=== PATIENT | female | born 1950 | race Caucasian/White ===

== ENCOUNTER 2016-11-02 06:01 | Inpatient (IN) | payer OTHER ==
[2016-10-25 14:47] LABS: % IMMATURE GRANULYOCYTES 0.3 % (0.0-1.1); ABSOLUTE IMMATURE GRANULOCYTES 0.02 10^3/uL (0.00-0.10); ADD DIFF? NO; ADD MORPH? NO; ADD SCAN? NO; ATYPICAL LYMPHOCYTE FLAG 10 (0-99); FRAGMENT RBC FLAG 0 (0-99); HEMATOCRIT 43.6 % (38.0-47.0); HEMOGLOBIN 14.2 g/dL (12.6-16.3); LEFT SHIFT FLG 0 (0-99); LIPEMIA HEMOLYSIS FLAG 80 (0-99); MEAN CELL HEMOGLOBIN 31.2 pg (27.9-34.1); MEAN CELL HEMOGLOBIN CONCENTR. 32.6 g/dL (32.4-36.7); MEAN CELL VOLUME 95.8 fL (81.5-99.8); PLATELET CLUMPS FLAG 0 (0-99); PLATELET COUNT 248 10^3/uL (150-400); RED BLOOD CELL COUNT 4.55 10^6/uL (4.18-5.33); RED CELL DISTRIBUTION WIDTH 12.2 % (11.5-15.2)
[~2016-11-02 06:01] MED LIST: ACETAMINOPHEN 325 MG TAB PO ONE; CEFAZOLIN 2 GM/DEXTR 100 ML IV ONE; CHLORHEXIDINE GLUC HIBICLENS 118 ML BTL TP ONE; DEXAMETHASONE 4 MG/ML VIAL IVP ONE; FAMOTIDINE 20 MG TAB PO ONE; ROPI/epiNEPH/KETOROLAC JOINT COCKTAIL IU ONE; TRANEXAMIC ACID 3,000 MG in NS 50 ML IRR ONE
[2016-11-02] MEDS ORDERED: TRANEXAMIC ACID 3,000 MG/50 ML BAG IRR ONE (07:17)
[2016-11-02] MEDS ORDERED: MIDAZOLAM 2 MG/2 ML VIAL ONE (07:46)
[2016-11-02] MEDS ORDERED: fentaNYL 100 MCG/2 ML INJ ONE (08:01)
[2016-11-02] MEDS ORDERED: PROPOFOL 200 MG/20 ML VIAL ONE ×2 (08:01→08:50)
[2016-11-02] MEDS ORDERED: SKIN ADHESIVE (DERMABOND) 1 EACH TP ONE (08:30)
[2016-11-02] MEDS ORDERED: ONDANSETRON 4 MG/2 ML VIAL IVP PRN (08:37)
[2016-11-02] MEDS ORDERED: PHARMACY PAIN CONSULT 1 EA MISC PRN (08:37)
[2016-11-02] MEDS ORDERED: MAGNESIUM HYDROXIDE 30 ML UDCUP PO PRN (08:37)
[2016-11-02] MEDS ORDERED: DIPHENOXYLATE/ATROPINE LOMOTIL 1 TAB PO PRN (08:37)
[2016-11-02] MEDS ORDERED: POLYETHYLENE GLYCOL 3350 17 GM PKT PO PRN (08:37)
[2016-11-02] MEDS ORDERED: LACTULOSE 20 GM/30 ML UDCUP PO PRN (08:37)
[2016-11-02] MEDS ORDERED: ONDANSETRON DISINTEGRATING 4 MG TAB PO PRN (08:37)
[2016-11-02] MEDS ORDERED: BISACODYL 10 MG SUPP PR PRN (08:37)
[2016-11-02] MEDS ORDERED: TEMAZEPAM 15 MG CAP PO PRN (08:37)
[2016-11-02] MEDS ORDERED: diphenhydrAMINE 25 MG CAP PO PRN (08:37)
[2016-11-02] MEDS ORDERED: METOCLOPRAMIDE 10 MG/2 ML VIAL IVP PRN (08:37)
[2016-11-02] MEDS ORDERED: PROMETHAZINE HCL 25 MG SUPPR PR PRN (08:37)
[2016-11-02] MEDS ORDERED: ZOLPIDEM TARTRATE 5 MG TAB PO PRN (08:38)
[2016-11-02] MEDS ORDERED: traMADol 50 MG TAB PO PRN (08:38)
[2016-11-02] MEDS ORDERED: ONDANSETRON 4 MG/2 ML VIAL ONE (08:53)
[2016-11-02] MEDS ORDERED: LR 1,000 ML IV SCH (09:00)
--- NOTE | 2016-11-02 09:20 | POSTOPPROG ---
Post Op Note Date of Operation: 11/02/16 Surgeon: Jose Mcnair Associate Professor Computer Science: ana mcnair Anesthesiologist: dr. david Anesthesia: Spinal Pre-op Diagnosis: right hip OA Post-op Diagnosis: same Indication: right hip pain due to OA that failed conservative measures Procedure: R SHAWN ant approach Findings: severe hip OA Inf/Abcess present in the surg proc area at time of surgery?: No EBL: 100-500
[2016-11-02 10:28] VITALS: RESP 16
[2016-11-02] MEDS: SENNOSIDES/DOCUSATE SODIUM TAB PO SCH ×2 (11:05→19:41)
[2016-11-02] MEDS: oxyCODONE IR 5 MG TAB PO PRN ×4 (11:32→21:02)
[2016-11-02] MEDS: ACETAMINOPHEN 325 MG TAB PO SCH ×3 (11:33→22:52)
[2016-11-02] MEDS: ceFAZolin 2 GM/DEXTROSE 100 ML IV SCH ×2 (13:56→21:03)
--- NOTE | 2016-11-02 16:48 | GOP ---
[f rep st] OPERATIVE REPORT DATE OF OPERATION: 11/02/2016 SURGEON: Dominique Landaverde MD [employer] OPERATOR: HENRI Escoto PREOPERATIVE DIAGNOSIS: Right hip osteoarthritis. POSTOPERATIVE DIAGNOSIS: Right hip osteoarthritis. PROCEDURE PERFORMED: Total hip arthroplasty with x-ray. FINDINGS: ESTIMATED BLOOD LOSS: 200 cc. INDICATIONS: The patient has progressively worsening arthritis of the hip which has failed medical management. The patient understands the treatment options including continued non-operative care an d has selected surgical intervention. The patient has decided to undergo total hip arthroplasty via the direct anterior approach, understanding the risks of the procedure including, but not limited t o, neurovascular injury, infection, persistent pain, component wear and loosening, deep venous throm bosis, pulmonary embolism, limb length inequality, hip instability (including dislocation), and intr a-operative fractures. DESCRIPTION OF PROCEDURE: After proper identification of the patient including verification and mar john the surgical site, the patient was brought to the operating room and placed in the supine posit ion. All bony prominences were well padded. Anesthesia was induced without complication and intrav enous prophylactic antibiotics were administered prior to skin incision. The operative leg was placed in the Trumpf Arch table extension and the well leg in a [place] leg h older. The patient was prepped and draped in the usual sterile fashion. The C-arm was draped for i ntra-operative fluoroscopy to check acetabular position, femoral component position including leg le ngth and femoral offset. Attention was then drawn to surgical exposure of the hip. An incision was made with a #10 [place] er blade starting 3 cm lateral and 3 cm distal to the anterior superior iliac spine measuring 8-10 c m and coursing distally toward the greater trochanter. The skin and subcutaneous tissues were divid ed sharply down to the fascia flores. The fascia flores was incised in line with the skin incision expo sing the underlying tensor fascia flores muscle. The muscle was bluntly elevated from the fascia and the first extracapsular Cobra retractor was placed laterally at the junction of the superior femoral neck and greater trochanter. The lateral femoral circumflex vessels were identified, cauterized, a nd divided with the Aquamantys bipolar cautery. The deep investing fascia of the TFL was divided to allow proper mobilization of the muscle preventing damage during the retraction. The reflected hea d of the rectus femoris muscle was elevated off the anterior hip capsule and a medial Cobra retracto r was placed just proximal to the lesser trochanter. The anterior capsulotomy was made sharply from the superolateral acetabulum to the saddle junction o f the superior femoral neck and greater trochanter, then coursing inferomedial towards the lesser tr ochanter. The retractors were then placed in the intracapsular position for femoral neck osteotomy. Corresponding to pre-operative templating, the osteotomy was made with the oscillating saw careful ly protecting the greater trochanter and soft tissues. The femoral head was removed from the acetab ulum with a corkscrew and confirmed to be severely arthritic with exposed bone, deformity and osteop hytes. Similar findings were confirmed in the acetabulum. The Arch table extension was then placed in 40 degrees external rotation. Attention was then drawn to the acetabular preparation. After placement of the anterior and posteri or Cobra retractors outside the labrum and intracapsular, the circumferential labrum was removed sha rply. The foveal contents were then removed and hemostasis obtained with cautery. The first reamer selected was sized using the removed femoral head. Reaming began with medializatio n and then commenced in 2 mm increments at 45 degrees of abduction and 15 degrees of anteversion usi ng fluoroscopic navigation. Reaming ceased 1 mm less than the definitive acetabular component and c orresponded to the pre-operative templating. The final acetabular component was inserted using fluo roscopy to achieve proper orientation yielding excellent purchase and stability in the acetabulum. The final acetabular liner was then placed and its seating confirmed. Attention was then turned to the femur. The Arch table extension was placed in extension and adduct ion, delivering the osteotomized femoral neck into the wound. A 2-pronged femoral elevator was plac ed at the calcar and another at the tip of the greater trochanter. The posterolateral capsule was r eleased with cautery allowing mobilization of the femur lateral and anterior for preparation. The e xternal rotators were visualized and preserved. A curette and rongeur were used to open the startin g point for broaching. Serial broaching started with the #0 broach and ended with the broach that e xhibited excellent fit in the proximal femur. A change in pitch during mallet strikes was accompani ed by the inability to advance the broach any further. The trial reduction was performed and fluoro scopic navigation was utilized to check limb length. Adjustments were made to equalize limb length accordingly. After the final trials were accepted they were removed and the wound was copiously lavaged. The fem oral component was seated to the same depth as the final broach and the femoral head was impacted on to the clean trunnion. The hip was then reduced for the final time and once more fluoroscopy was us ed to check that limb length equality was achieved. The wound was irrigated and closed in layers, the fascia flores with 2-0 Quill, the subcutaneous tissu e with 2-0 Quill, and the skin with Dermabond. Sterile dressings were applied. Final sharps and sp onge counts were accurate. The patient was then transferred to a hospital bed and brought to the re covery room in stable condition. IMPLANTS: Accolade II size 4 at 127, acetabular component a 52 mm Tritanium. The liner was a Tride nt X3 32 mm. The head was a Biolox Delta Delta 32 mm -4. /[id number]/MODL
[2016-11-02] MEDS: FAMOTIDINE 20 MG TAB PO SCH (19:41)
[2016-11-02] MEDS: ASPIRIN 325 MG TAB PO SCH (19:41)
[2016-11-02] MEDS: CYCLOBENZAPRINE 10 MG TAB PO PRN (22:53)
[2016-11-03] MEDS: oxyCODONE IR 5 MG TAB PO PRN ×2 (03:11→10:06)
[2016-11-03 04:48] LABS: HEMATOCRIT 34.6 % (38.0-47.0); HEMOGLOBIN 11.5 g/dL (12.6-16.3)
[2016-11-03] MEDS: ACETAMINOPHEN 325 MG TAB PO SCH ×2 (04:58→11:35)
[2016-11-03 07:30] VITALS: BP 123/65; PULSE 77; TEMP 99.1
[2016-11-03] MEDS: ASPIRIN 325 MG TAB PO SCH (09:36)
[2016-11-03] MEDS: SENNOSIDES/DOCUSATE SODIUM TAB PO SCH (09:36)
[2016-11-03] MEDS: FAMOTIDINE 20 MG TAB PO SCH (09:36)
[2016-11-03] MEDS: CYCLOBENZAPRINE 10 MG TAB PO PRN (09:48)
--- NOTE | 2016-11-03 09:52 | SOAPPROG ---
SOAP Progress Note Assessment/Plan: Assessment: is doing well POD 1 s/p R SHAWN 1. Pain management: pain is well controlled on oral pain meds 2. Anemia: level is expected initially postop. Asymptomatic, continue to monitor 3. VTE prophylaxis: Recommend aspirin daily. Cont SCDs and TEDs 4. D/c planning: d/c to home today most likely pending release from PT. Plan: 11/03/16 09:51 Objective: Vital Signs Temp Pulse Resp BP Pulse Ox 37.3 C 77 16 123/65 H 96 11/03/16 07:29 11/03/16 07:29 11/03/16 07:29 11/03/16 07:29 11/03/16 07:29 Laboratory Results 11/03/16 04:19 11/02/16 11/03/16 11/04/16 05:59 05:59 05:59 Intake Total 3270 Output Total 1900 150 Balance 1370 -150 ICD10 Worksheet Patient Problems: Problems Problem Status Onset Primary localized osteoarthritis of right hip Acute
[2016-11-03 13:10] VITALS: O2SAT 95
== END 2016-11-03 14:23 | disposition home or self-care (01) | DRG 470 ==
LOC: F3N 06:01
PROVIDERS: ADMIT Orthopaedic Surgery; ATTEND Orthopaedic Surgery
PROC: 0SR904Z Replacement of Right Hip Joint with Ceramic on Polyethylene Synthetic Substitute, Open Approach (ICD-10-PCS; principal; 2016-11-02 08:15)
DX: M16.11 Unilateral primary osteoarthritis, right hip (principal); Z85.3 Personal history of malignant neoplasm of breast
CPT/HCPCS: 97116-GP; 97161-GP; 97165-GO; G8978-GP-CJ; G8979-GP-CI; G8980-GP-CI; G8987-GO-CI; G8988-GO-CI; G8989-GO-CI; J0171; J0690; J1100; J1885; J2250; J2405; J2704; J2795; J3010

== ENCOUNTER → 2017-07-12 | Outpatient (CLI) | payer OTHER | LOC: FIMAGING 08:34 | PROVIDERS: ATTEND Internal Medicine | DX: Z12.31 Encounter for screening mammogram for malignant neoplasm of breast (principal); Z85.3 Personal history of malignant neoplasm of breast | CPT/HCPCS: G0202 ==

== ENCOUNTER → 2017-08-09 | Outpatient (CLI) | payer OTHER | LOC: BMCIMAGING 08:16 | PROVIDERS: ATTEND Orthopaedic Surgery | DX: M16.12 Unilateral primary osteoarthritis, left hip (principal); Z96.641 Presence of right artificial hip joint ==

== ENCOUNTER → 2017-08-18 | Outpatient (CLI) | payer OTHER | LOC: FIMAGING 15:39 | PROVIDERS: ATTEND Orthopaedic Surgery | DX: M16.12 Unilateral primary osteoarthritis, left hip (principal); M53.3 Sacrococcygeal disorders, not elsewhere classified; M51.37 Other intervertebral disc degeneration, lumbosacral region; Z96.641 Presence of right artificial hip joint ==

== ENCOUNTER 2017-10-09 09:02 | Inpatient (IN) | payer OTHER ==
--- NOTE | 2017-10-09 07:06 | PDHPUP ---
History & Physical Update H&P update statement: This history and physical update is based on an assessment of the patient which was completed after admission or registration (within 24 hours), but prior to the surgery/procedure. H&P update: no change in patient's condition since H&P completed
--- NOTE | 2017-10-09 07:07 | PDIAF ---
- Diagnosis Diagnosis: left hip djd Code Status: Full Code - Medication Management Discharge Medications: Medications to Continue on Transfer Acetaminophen [Tylenol ES 500 mg (*)] 500 mg PO TID PRN 10/24/16 [Last Taken 11/14] Raloxifene HCl [Evista] 60 mg PO DAILY 10/24/16 [Last Taken 10/26/16] Zolpidem Tartrate [Ambien 5MG (*)] 2.5 mg PO HS PRN 10/24/16 [Last Taken ] traMADol [Ultram 50 mg (*)] 50 mg PO HS PRN 10/24/16 [Last Taken 10/30/16 21:00] Herbals/Supplements -Info Only 1 ea PO DAILY 09/19/17 [Last Taken Unknown] Ibuprofen [Motrin (*)] 400 mg PO TID PRN 09/19/17 [Last Taken Unknown] Multivitamins [Multivitamin (*)] 1 each PO DAILY 09/19/17 [Last Taken Unknown] Discharge Medications: Refer to the Discharge Home Medication list for PRN reason. - Orders Services needed: Physical Therapy Activity/Weight Bearing Restrictions: wbat. anterior hip precautions. daily dressing changes. ice prn. no soaking, may shower without bandage. f/u at two weeks - Follow Up Care Current Providers and Referrals: Dahiana Yan MD [Primary Care Provider] -
[~2017-10-09 09:02] MED LIST changes: -ACETAMINOPHEN 325 MG TAB PO ONE; +BUPI/epINEPH/KETOROLAC/morphINE IU ONE; -CEFAZOLIN 2 GM/DEXTR 100 ML IV ONE; -CHLORHEXIDINE GLUC HIBICLENS 118 ML BTL TP ONE; -DEXAMETHASONE 4 MG/ML VIAL IVP ONE; -FAMOTIDINE 20 MG TAB PO ONE; +NS IV ONE; -ROPI/epiNEPH/KETOROLAC JOINT COCKTAIL IU ONE; +ROPIVACAINE 0.2% 80 MG, EPINEPHrine 0.2 MG, KETOROLAC TROMETHAMINE 30 MG, morphINE 10 M... IU ONE; -TRANEXAMIC ACID 3,000 MG in NS 50 ML IRR ONE; +TRANEXAMIC ACID IV ONE
[2017-10-09] MEDS ORDERED: ceFAZolin 1 GM/5 ML SYR ONE (09:07)
[2017-10-09] MEDS ORDERED: HYDROCODONE/APAP 5/325 TAB PO PRN ×2 (09:13→11:51)
[2017-10-09] MEDS ORDERED: NS 500 ML IV PRN (09:13)
[2017-10-09] MEDS ORDERED: ONDANSETRON 4 MG/2 ML VIAL IVP PRN ×2 (09:13→11:51)
[2017-10-09] MEDS ORDERED: fentaNYL 100 MCG/2 ML INJ IVP PRN ×2 (09:13→11:51)
[2017-10-09] MEDS ORDERED: LABETALOL HCL 5 MG/ML 20 ML MDV IVP PRN (09:13)
[2017-10-09] MEDS ORDERED: NALOXONE HCL 0.4 MG/ML INJ IVP PRN ×2 (09:13→11:51)
[2017-10-09] MEDS ORDERED: MIDAZOLAM 2 MG/2 ML VIAL IVP ONE (09:47)
--- NOTE | 2017-10-09 09:50 | PDANEPAE ---
ANE Past Medical History - Cardiovascular History Hx Hypertension: No Hx Arrhythmias: No Hx Chest Pain: No Hx Coronary Artery / Peripheral Vascular Disease: No Hx CHF / Valvular Disease: No Hx Palpitations: No - Pulmonary History Hx COPD: No Hx Asthma/Reactive Airway Disease: No Hx Recent Upper Respiratory Infection: No Hx Oxygen in Use at Home: No Hx Sleep Apnea: No Sleep Apnea Screening Result - Last Documented: Negative - Neurologic History Hx Cerebrovascular Accident: No Hx Seizures: No Hx Dementia: No - Endocrine History Hx Diabetes: No Hypothyroid: No Hyperthyroid: No Obesity: no - Renal History Hx Renal Disorders: No - Liver History Hx Hepatic Disorders: No - Neurological & Psychiatric Hx Hx Neurological and Psychiatric Disorders: No - Cancer History Hx Cancer: Yes Cancer History Comment: L BREAST. SKIN - Congenital Disorder History Hx Congenital Disorders: No - GI History Hx Gastrointestinal Disorders: No - Other Health History Other Health History: OSTEOARTHRITIS - Chronic Pain History Chronic Pain: Yes (LT HIP) - Surgical History Prior Surgeries: RT TOTAL HIP 11/02/16. LUMPECTOMY L 2013. RT HAND. LAPAROSCOPY ADHESIONS ANE Review of Systems Review of Systems: - Exercise capacity METS (RN): 6 METS ANE Patient History - Allergies Allergies/Adverse Reactions: No Known Allergies Allergy (Unverified 07/16/13 08:45) - Home Medications Home Medications: Acetaminophen [Tylenol ES 500 mg (*)] 500 mg PO TID PRN 10/24/16 [Last Taken 11/14] Raloxifene HCl [Evista] 60 mg PO DAILY 10/24/16 [Last Taken 10/26/16] Zolpidem Tartrate [Ambien 5MG (*)] 2.5 mg PO HS PRN 10/24/16 [Last Taken ] traMADol [Ultram 50 mg (*)] 50 mg PO HS PRN 10/24/16 [Last Taken 10/30/16 21:00] Herbals/Supplements -Info Only 1 ea PO DAILY 09/19/17 [Last Taken Unknown] Ibuprofen [Motrin (*)] 400 mg PO TID PRN 09/19/17 [Last Taken Unknown] Multivitamins [Multivitamin (*)] 1 each PO DAILY 09/19/17 [Last Taken Unknown] - Smoking Hx Smoking Status: Never smoked - Family Anes Hx Family Hx Anesthesia Complications: NEG ANE Labs/Vital Signs - Vital Signs Height: 161.29 cm Weight: 63.503 kg ANE Physical Exam - Airway Neck exam: FROM Mallampati Score: Class 1 Mouth exam: normal dental/mouth exam - Pulmonary Pulmonary: no respiratory distress - Cardiovascular Cardiovascular: regular rate and rhythym - ASA Status ASA Status: II ANE Anesthesia Plan Anesthesia Plan: GA w LMA, spinal
[2017-10-09] MEDS ORDERED: PROPOFOL/EMULSION 500 MG/50 ML BOTTLE IV ONE (10:06)
[2017-10-09] MEDS ORDERED: LIDOCAINE 2% 5 ML SDV ONE (10:06)
[2017-10-09] MEDS ORDERED: fentaNYL 100 MCG/2 ML INJ ONE (10:08)
[2017-10-09] MEDS ORDERED: MIDAZOLAM 2 MG/2 ML VIAL ONE (10:36)
[2017-10-09] MEDS ORDERED: DIPHENOXYLATE/ATROPINE LOMOTIL 1 TAB PO PRN (11:30)
[2017-10-09] MEDS ORDERED: TEMAZEPAM 15 MG CAP PO PRN (11:30)
[2017-10-09] MEDS ORDERED: METOCLOPRAMIDE 10 MG/2 ML VIAL IVP PRN (11:30)
[2017-10-09] MEDS ORDERED: LR 1,000 ML IV SCH (11:30)
[2017-10-09] MEDS ORDERED: BISACODYL 10 MG SUPP PR PRN (11:30)
[2017-10-09] MEDS ORDERED: diphenhydrAMINE 25 MG CAP PO PRN (11:30)
[2017-10-09] MEDS ORDERED: PROMETHAZINE HCL 25 MG SUPPR PR PRN (11:30)
[2017-10-09] MEDS ORDERED: PROMETHAZINE HCL 25 MG/ML INJ IVP PRN (11:30)
[2017-10-09] MEDS ORDERED: LACTULOSE 20 GM/30 ML UDCUP PO PRN (11:30)
[2017-10-09] MEDS ORDERED: MAGNESIUM HYDROXIDE 30 ML UDCUP PO PRN (11:30)
[2017-10-09] MEDS ORDERED: LR 500 ML IV PRN (11:51)
--- NOTE | 2017-10-09 11:53 | POSTANESTH ---
Post Anesthetic Evaluation Cardiovascular Status: Normal, Stable Respiratory Status: Normal, Stable Level of Consciousness/Mental Status: Can Participate in Eval Pain Control: Adequate, Prn Tx Ordered Nausea/Vomiting Control: Adequate, Prn Tx Ordered Complications Possibly Related to Anesthesia: None Noted
[2017-10-09] MEDS ORDERED: ceFAZolin 2 GM/SWFI 2 GM/20 ML SYR IVP ONE (11:55)
[2017-10-09] MEDS ORDERED: ACETAMINOPHEN 325 MG TAB PO ONE (11:55)
[2017-10-09] MEDS ORDERED: FAMOTIDINE 20 MG TAB PO ONE (11:55)
[2017-10-09] MEDS: ACETAMINOPHEN 325 MG TAB PO SCH ×2 (13:47→18:02)
[2017-10-09] MEDS ORDERED: ceFAZolin 2 GM/DEXTROSE 100 ML IV SCH (14:00)
[2017-10-09] MEDS: ONDANSETRON DISINTEGRATING 4 MG TAB PO PRN (15:44)
[2017-10-09] MEDS: oxyCODONE IR 5 MG TAB PO PRN ×3 (15:46→23:25)
[2017-10-09] MEDS: TRANEXAMIC ACID 650 MG TAB PO SCH (18:01)
[2017-10-09] MEDS: ONDANSETRON 4 MG/2 ML VIAL IVP PRN (18:01)
[2017-10-09] MEDS: ceFAZolin 2 GM/SWFI 2 GM/20 ML SYR IVP SCH (18:01)
[2017-10-09] MEDS: DIAZEPAM 5 MG TAB PO PRN (18:02)
--- NOTE | 2017-10-09 19:48 | PDMN ---
Medical Necessity Medical necessity: IP surgery per [facility] cpt [id number]
[2017-10-09] MEDS: FAMOTIDINE 20 MG TAB PO SCH (20:57)
[2017-10-09] MEDS: ASPIRIN 325 MG TAB PO SCH (20:57)
[2017-10-09] MEDS: SENNOSIDES/DOCUSATE SODIUM TAB PO SCH (20:57)
[2017-10-09] MEDS: POLYETHYLENE GLYCOL 3350 17 GM PKT PO PRN (23:25)
[2017-10-10] MEDS: ONDANSETRON DISINTEGRATING 4 MG TAB PO PRN (01:31)
[2017-10-10] MEDS: ceFAZolin 2 GM/SWFI 2 GM/20 ML SYR IVP SCH (01:32)
[2017-10-10] MEDS: ONDANSETRON 4 MG/2 ML VIAL IVP PRN (01:56)
[2017-10-10] MEDS: ACETAMINOPHEN 325 MG TAB PO SCH ×3 (04:05→11:03)
[2017-10-10] MEDS: TRANEXAMIC ACID 650 MG TAB PO SCH ×2 (04:14→11:04)
[2017-10-10 07:19] VITALS: RESP 16
[2017-10-10] MEDS: DIAZEPAM 5 MG TAB PO PRN (07:52)
[2017-10-10] MEDS: oxyCODONE IR 5 MG TAB PO PRN ×2 (07:52→13:19)
--- NOTE | 2017-10-10 07:52 | SOAPPROG ---
SOAP Progress Note Assessment/Plan: Assessment: s/p left leilani Plan:d/c home when stable dvt precautions f/u at two weeks [facility] seek attn for increasing pain, other focal complaint 10/10/17 07:50 Subjective: nauseated pain no cp or sob Objective: Vital Signs Temp Pulse Resp BP Pulse Ox 37.4 C 85 16 130/65 H 93 10/10/17 07:19 10/10/17 07:19 10/10/17 07:19 10/10/17 07:19 10/10/17 07:19 Laboratory Results 10/10/17 04:35 10/09/17 10/10/17 10/11/17 05:59 05:59 05:59 Intake Total 2350 Output Total 2100 500 Balance 250 -500 dressing clean, dry and intact intact pf,df, ehl toes warm and pink neg [place] xrays stable anatomic alignement no fx ICD10 Worksheet Patient Problems: Problems Problem Status Onset Primary localized osteoarthritis of right hip Acute
--- NOTE | 2017-10-10 07:52 | PDIAF ---
- Diagnosis Diagnosis: left hip djd Code Status: Full Code - Medication Management Discharge Medications: Medications to Continue on Transfer Acetaminophen [Tylenol ES 500 mg (*)] 500 mg PO TID PRN 10/24/16 [Last Taken 11/14] Raloxifene HCl [Evista] 60 mg PO DAILY 10/24/16 [Last Taken 10/26/16] Zolpidem Tartrate [Ambien 5MG (*)] 2.5 mg PO HS PRN 10/24/16 [Last Taken ] traMADol [Ultram 50 mg (*)] 50 mg PO HS PRN 10/24/16 [Last Taken 10/30/16 21:00] Herbals/Supplements -Info Only 1 ea PO DAILY 09/19/17 [Last Taken Unknown] Multivitamins [Multivitamin (*)] 1 each PO DAILY 09/19/17 [Last Taken Unknown] Aspirin [Aspirin 325 mg (*)] 325 mg PO DAILY tab 10/10/17 [Last Taken Unknown] Diazepam [Valium 5 MG (*)] 5 mg PO Q6HRS PRN #30 tab 10/10/17 [Last Taken Unknown] Ondansetron Odt [Zofran Odt 4 mg (*)] 4 mg PO Q4HRS PRN #14 tab 10/10/17 [Last Taken Unknown] oxyCODONE IR [Oxycodone Ir (*)] 5 - 10 mg PO Q3HRS PRN #60 tab 10/10/17 [Last Taken Unknown] Discharge Medications: Refer to the Discharge Home Medication list for PRN reason. - Orders Services needed: Physical Therapy Diet Recommendation: no restrictions on diet Diet Texture: Regular Texture Diet Activity/Weight Bearing Restrictions: wbat. anterior hip precautions. daily dressing changes. ice prn. no soaking, may shower without bandage. f/u at two weeks - Follow Up Care Current Providers and Referrals: Dahiana Yan MD [Primary Care Provider] -
[2017-10-10] MEDS ORDERED: LEVOTHYROXINE 112 MCG TAB PO SCH (08:15)
[2017-10-10] MEDS ORDERED: RALOXIFENE HCL 60 MG TAB PO SCH (09:00)
[2017-10-10] MEDS: FAMOTIDINE 20 MG TAB PO SCH (09:13)
[2017-10-10] MEDS: SENNOSIDES/DOCUSATE SODIUM TAB PO SCH (09:13)
[2017-10-10] MEDS: ASPIRIN 325 MG TAB PO SCH (09:13)
[2017-10-10] MEDS: POLYETHYLENE GLYCOL 3350 17 GM PKT PO PRN (09:14)
[2017-10-10 12:08] VITALS: BP 117/42; PULSE 86; TEMP 98.6; O2SAT 97
== END 2017-10-10 14:46 | disposition home or self-care (01) | DRG 470 ==
LOC: F3N 09:02
PROVIDERS: ADMIT Orthopaedic Surgery; ATTEND Orthopaedic Surgery
PROC: 0SRB04Z Replacement of Left Hip Joint with Ceramic on Polyethylene Synthetic Substitute, Open Approach (ICD-10-PCS; principal; 2017-10-09 11:15)
DX: M16.12 Unilateral primary osteoarthritis, left hip (principal)
CPT/HCPCS: 97110-GP; 97116-GP; 97161-GP; 97165-GO; 97535-GO; G8978-GP-CK; G8979-GP-CI; G8980-GP-CI; G8987-GO-CK; G8988-GO-CI; J0171; J0690; J1885; J2250; J2270; J2405; J2550; J2704; J3010

== ENCOUNTER → 2017-11-21 | Outpatient (CLI) | payer OTHER | LOC: BMCIMAGING 08:17 | PROVIDERS: ATTEND Orthopaedic Surgery | DX: Z47.1 Aftercare following joint replacement surgery (principal); Z96.642 Presence of left artificial hip joint ==

== ENCOUNTER → 2018-01-02 | Outpatient (CLI) | payer OTHER | LOC: BMCIMAGING 08:28 → EDSTATUS 08:29 | PROVIDERS: ATTEND Orthopaedic Surgery | DX: Z09 Encounter for follow-up examination after completed treatment for conditions other than malignant neoplasm (principal); Z96.643 Presence of artificial hip joint, bilateral ==

== ENCOUNTER → 2018-04-04 | Outpatient (CLI) | payer OTHER | LOC: BMCIMAGING 08:08 | PROVIDERS: ATTEND Orthopaedic Surgery | DX: Z47.1 Aftercare following joint replacement surgery (principal); Z96.643 Presence of artificial hip joint, bilateral ==

== ENCOUNTER → 2018-07-16 | Outpatient (CLI) | payer OTHER | LOC: FIMAGING 08:17 | PROVIDERS: ATTEND Internal Medicine | DX: Z12.31 Encounter for screening mammogram for malignant neoplasm of breast (principal); Z85.3 Personal history of malignant neoplasm of breast ==

== ENCOUNTER → 2018-09-26 | Outpatient (CLI) | payer OTHER | LOC: FIMAGING 08:44 | PROVIDERS: ATTEND Internal Medicine Hematology & Oncology | DX: Z13.820 Encounter for screening for osteoporosis (principal); Z78.0 Asymptomatic menopausal state ==

== ENCOUNTER → 2018-10-03 | Outpatient (CLI) | payer OTHER | LOC: BMCIMAGING 08:25 | PROVIDERS: ATTEND Orthopaedic Surgery | DX: Z47.1 Aftercare following joint replacement surgery (principal); Z96.642 Presence of left artificial hip joint ==